=== PATIENT | male | born 1950 | race Caucasian/White ===

== ENCOUNTER → 2017-04-14 | Outpatient (CLI) | payer OTHER ==
[2014-05-25 08:32] VITALS: BP 123/80
[~2017-04-14] MED LIST: ASPI-482 PO; ATOR40TA PO; DUTA1CPM PO; HYDR-2758 PO; IBUP200T77 PO; ONDA4TAB12 PO; POTASSIUM CHLO10 MEQ PO
[2017-04-14 11:30] LABS: BASO % 1 % (0-3); EOS % 3 % (0-3); HEMATOCRIT 42.7 % (39.0-53.0); LYMPH # 1.4 x10^3/uL (1.0-4.8); LYMPH % 30 % (24-48); MEAN CORPUSCULAR HEMOGLOBIN 29 pg (25-35); MEAN CORPUSCULAR HGB CONC 33 g/dL (31-37); MEAN CORPUSCULAR VOLUME 88 fL (79-100); MONO % 14 % (0-9); NEUT % 53 % (31-73); PLATELET COUNT 156 x10^3/uL (140-400); RED BLOOD COUNT 4.88 x10^6/uL (4.30-5.70); RED CELL DISTRIBUTION WIDTH 13.4 % (11.5-14.5); WHITE BLOOD COUNT 4.8 x10^3/uL (4.0-11.0)
[2017-04-14 11:47] LABS: ALBUMIN 3.7 g/dL (3.4-5.0); ALBUMIN/GLOBULIN RATIO 1.1 (1.0-1.7); CALCIUM 8.5 mg/dL (8.5-10.1); CHOLESTEROL/HDL RATIO 3.4; GFR 74.5; POTASSIUM 3.6 mmol/L (3.5-5.1); TOTAL BILIRUBIN 1.3 mg/dL (0.2-1.0); TOTAL PROTEIN 7.1 g/dL (6.4-8.2)
[2017-04-14 12:16] LABS: FREE T4 0.91 ng/dL (0.76-1.46)
== END | disposition home or self-care (01) ==
LOC: LAB 11:07
PROVIDERS: ATTEND Family Medicine
DX: Z12.5 Encounter for screening for malignant neoplasm of prostate (principal); N40.0 Benign prostatic hyperplasia without lower urinary tract symptoms; R05 Cough; E78.5 Hyperlipidemia, unspecified; I10 Essential (primary) hypertension
CPT/HCPCS: 36415; 80053; 80061; 84439; 84443; 85025; G0103

== ENCOUNTER → 2017-05-29 | Outpatient (CLI) | payer OTHER ==
[2014-05-25 08:32] VITALS: BP 123/80
--- NOTE | 2017-05-29 09:12 | RAD ---
Indication: Right foot pain with weightbearing, symptoms are intermittent and occurred over the last couple of months. Technique: 3 views of the right foot are submitted for review. No comparison is available. Findings: There is mild degenerative change at the first metatarsal-phalangeal joint. There is a small plantar calcaneal spur. An acute fracture or dislocation is not identified. There is a slight increase in distance between the first and second metatarsal bases, although the metatarsals appear to maintain their relationships with the cuboid and cuneiforms. 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
== END | disposition home or self-care (01) ==
LOC: RAD 07:31
PROVIDERS: ATTEND Podiatrist
DX: M77.31 Calcaneal spur, right foot (principal)
CPT/HCPCS: 73630

== ENCOUNTER → 2017-08-17 | Outpatient (CLI) | payer OTHER ==
[~2017-08-17] MED LIST changes: -ASPI-482 PO; -ATOR40TA PO; -DUTA1CPM PO; -HYDR-2758 PO; -IBUP200T77 PO; -ONDA4TAB12 PO; -POTASSIUM CHLO10 MEQ PO; +REGADENOSON 0.4 MG/5 ML DISP.SYRIN. IV
== END | disposition home or self-care (01) ==
LOC: NM 09:24
DX: I10 Essential (primary) hypertension (principal); R22.9 Localized swelling, mass and lump, unspecified
CPT/HCPCS: 78452; 93017; 96374; 96375; 96376; A9500; J2785

== ENCOUNTER → 2018-07-09 | Outpatient (CLI) | payer OTHER, MEDICARE ==
[2014-05-25 08:32] VITALS: BP 123/80
[~2018-07-09] MED LIST changes: +ASPI-482 PO; +ATOR40TA PO; +DUTA1CPM PO; +HYDR-2758 PO; +IBUP200T77 PO; +ONDA4TAB12 PO; +POTA10TA12 PO; -REGADENOSON 0.4 MG/5 ML DISP.SYRIN. IV
[2018-07-09 12:41] LABS: ALBUMIN 3.8 g/dL (3.4-5.0); ALBUMIN/GLOBULIN RATIO 1.1 (1.0-1.7); CREATININE 1.1 mg/dL (0.7-1.3); GFR 66.6; POTASSIUM 3.7 mmol/L (3.5-5.1); TOTAL BILIRUBIN 1.2 mg/dL (0.2-1.0); TOTAL PROTEIN 7.2 g/dL (6.4-8.2)
[2018-07-09 12:44] LABS: CHOLESTEROL/HDL RATIO 2.9
[2018-07-10 14:22] LABS: THYROXINE 6.2 ug/dL (4.5-12.0)
== END | disposition home or self-care (01) ==
LOC: LAB 11:41
PROVIDERS: ATTEND Urology
DX: Z12.5 Encounter for screening for malignant neoplasm of prostate (principal); I10 Essential (primary) hypertension; E78.5 Hyperlipidemia, unspecified; R53.83 Other fatigue; R25.2 Cramp and spasm
CPT/HCPCS: 80053; 80061; 82607; 83735; 84443; G0103; 36415; 84436

== ENCOUNTER → 2019-02-01 | Outpatient (CLI) | payer OTHER ==
[2014-05-25 08:32] VITALS: BP 123/80
[~2019-02-01] MED LIST changes: -HYDR-2758 PO; +HYDR-2761 PO
== END | disposition home or self-care (01) ==
LOC: LAB 11:13
PROVIDERS: ATTEND Urology
DX: R97.20 Elevated prostate specific antigen [PSA] (principal)
CPT/HCPCS: 36415; 84153; G0103

== ENCOUNTER → 2020-01-30 | Outpatient (CLI) | payer OTHER ==
[2014-05-25 08:32] VITALS: BP 123/80
[2020-01-30 11:57] LABS: BASO % 1 % (0-3); EOS # 0.1 x10^3/uL (0.0-0.7); EOS % 1 % (0-3); HEMATOCRIT 42.9 % (39.0-53.0); HEMOGLOBIN 14.6 g/dL (13.0-17.5); LYMPH # 1.1 x10^3/uL (1.0-4.8); LYMPH % 24 % (24-48); MEAN CORPUSCULAR HEMOGLOBIN 30 pg (25-35); MEAN CORPUSCULAR HGB CONC 34 g/dL (31-37); MEAN CORPUSCULAR VOLUME 87 fL (79-100); MONO # 0.5 x10^3/uL (0.0-1.1); MONO % 11 % (0-9); NEUT % 63 % (31-73); PLATELET COUNT 156 x10^3/uL (140-400); RED BLOOD COUNT 4.93 x10^6/uL (4.30-5.70); RED CELL DISTRIBUTION WIDTH 13.7 % (11.5-14.5); WHITE BLOOD COUNT 4.7 x10^3/uL (4.0-11.0)
[2020-01-30 12:14] LABS: ALBUMIN 3.8 g/dL (3.4-5.0); CALCIUM 8.9 mg/dL (8.5-10.1); CREATININE 1.2 mg/dL (0.7-1.3); DIRECT BILIRUBIN 0.2 mg/dL (0.0-0.2); GFR 59.9; MAGNESIUM 1.9 mg/dL (1.8-2.4); POTASSIUM 4.3 mmol/L (3.5-5.1); TOTAL BILIRUBIN 0.7 mg/dL (0.2-1.0); TOTAL PROTEIN 7.2 g/dL (6.4-8.2)
[2020-01-30 12:15] LABS: CHOLESTEROL/HDL RATIO 3.4
== END | disposition home or self-care (01) ==
LOC: LAB 11:37
PROVIDERS: ATTEND Internal Medicine Cardiovascular Disease
DX: I10 Essential (primary) hypertension (principal); E78.5 Hyperlipidemia, unspecified
CPT/HCPCS: 36415; 80048; 80061; 80076; 83735; 85025

== ENCOUNTER → 2020-04-06 | Outpatient (CLI) | payer OTHER ==
[2014-05-25 08:32] VITALS: BP 123/80
--- NOTE | 2020-04-06 14:52 | RAD ---
MR#: [id number] Date of Study: 04/06/2020 Ordering Physician: CAMRON COTTON, Referring Physician: FARIDEH REED Tech: RT Wale (Joe) (N) APPROVED REPORT Test Type: Exercise Stress Nurse/Tech: Sandra Lorenzo RN Test Indications: JACOBO, Fatigue Cardiac History: Hypertension Medications: See Electronic Medical Record Medical History: See Electronic Medical Record Resting ECG: SB with 1st degree block Resting Heart Rate: 50 bpm Resting Blood Pressure: 96/60mmHg Pretest Chest Pain: No chest pain Nurse/Tech Notes S1S2, Lungs CTA Consent: The procedure was explained to the patient in lay terms. Informed consent was witnessed. Dada eout was entered into [employer]. History and Stress Test performed by ROSEMARIE Chong, ALEX (R) (N) Pharm. Details Pharmacologic stress testing was performed using 0.4mg per 5ml of regadenoson given intravenously ove r 7-10 seconds. Stress Symptoms Fatigue POST EXERCISE Reason for Termination: Reached target heart rate Target HR: 127 Max HR: 137 bpm 107% of Maximum Predicted HR: 137 bpm Exercise duration: 07:53 min:sec, 3 Stage Exercise capacity: 10.0METs Max Blood Pressure: 132/64mmHg Blood Pressure response to exercise: Normal blood pressure response during stress. Heart Rate response to exercise: WNL Chest Pain: No. Arrhythmia: No. 1st degree block before test and throughout test with no change. ST Change: No. INTERPRETATION Stress EKG Conclusion: Baseline EKG showed sinus rhythm with first degree AVB. No ischemic changes a t peak stress. No arrhythmias. Imaging Protocol IMAGE PROTOCOL: Rest Tc-99m/stress Tc-99m 1 day Rest: Stress: Viability: Radiopharm.Tc99m SxczsmpnlGd51a Sestamibi Dose10.7mCi 33mCi Duration 15min. 10min. Img Date 04/06/2020 04/06/2020 Inj-Img Kzxf32rpu. 60min. Post-Injection Exercise: 1 minute Rest Admin Site:IV - Right HandAdministrator:Carlyn Kidd, NMTCB, ARRT (R)(N) Stress Admin Site: IV - Right HandAdministrator: Carlyn Kidd, NMTCB, ARRT (R)(N) STRESS DATA End Diast. Vol.100.0mlAv. Heart Rate61.0bpm End Syst. Vol.20.0mlCO Index BSA0.0L/min Myocardial Ndtm325.0gEject. Hjltqgfp78.0% Stress Rates Pk. Fill Rate2.75EDV/secLVtime Pk. Fill 235.61msec Pk. Empty Rate3.53ESV/secLVtime Pk. Gsuqv822.75msec 08/16 Pk. Fill1.24EDV/sec Stress Scores Regional WT0.00Summed WT2.00 Regional WM0.00Summed WM0.00 Study quality was good. Left Ventricular size was Normal at Rest and Stress. Lung uptake was . Left Ventricular ejection fraction is 80%. The rest and stress images show normal perfusion, normal contraction and thickening. LV Perf. Quant 17 Seg. SSS0.00 17 Seg. SRS1.00 17 Seg. SDS0.00 Stress Defect Extent (% LAD)0.00Rest Defect Extent (% LAD)0.00Rev. Defect Extent (% LAD)0.00 Stress Defect Extent (% LCX) 0.00Rest Defect Extent (% LCX)0.00Rev. Defect Extent (% LCX)0.00 Stress Defect Extent (% RCA)0.00Rest Defect Extent (% RCA)0.00Rev. Defect Extent (% RCA)0.00 Stress Defect Extent (% HOME)0.00Rest Defect Extent (% HOME)0.00Rev. Defect Extent (% HOME)0.00 Conclusion 1. Treadmill exercise cardioisotope stress test did not show any evidence of ischemia or infarct. 2. Normal left ventricular systolic function with ejection fraction calculated at 80%. 3. Low risk for cardiac events. Signed by : Darius Minaya, Electronically Approved : 04/06/2020 14:51:42
== END | disposition home or self-care (01) ==
LOC: NM 07:54
PROVIDERS: ATTEND Internal Medicine Cardiovascular Disease
DX: I10 Essential (primary) hypertension (principal); R06.00 Dyspnea, unspecified
CPT/HCPCS: 78452; 93017; A9500

== ENCOUNTER → 2020-04-06 | Outpatient (CLI) | payer OTHER ==
[2014-05-25 08:32] VITALS: BP 123/80
--- NOTE | 2020-04-06 09:46 | CARD ---
MR#: [id number] Date of Study: 04/06/2020 Ordering Physician: CAMRON COTTON, Referring Physician: CAMRON COTTON, Tech: Ruth Keith APPROVED REPORT EXAM: Two-dimensional and M-mode echocardiogram with Doppler and color Doppler. Other Information Quality : AverageHR: 49bpm INDICATION Dyspnea RISK FACTORS Hypertension Hyperlipidemia 2D DIMENSIONS RVDd4.4 (2.9-3.5cm)Left Atrium(2D)3.5 (1.6-4.0cm) IVSd1.0 (0.7-1.1cm)Aortic Root(2D)3.8 (2.0-3.7cm) LVDd4.5 (3.9-5.9cm)LVOT Diameter2.1 (1.8-2.4cm) PWd1.0 (0.7-1.1cm)LVDs2.9 (2.5-4.0cm) FS (%) 36.0 %SV59.6 ml LVEF(%)65.8 (>50%) Aortic Valve AoV Peak Arturo.125.4cm/sAoV VTI26.1cm AO Peak GR.6.3mmHgLVOT Peak Arturo.100.2cm/s LVOT VTI 24.29cmAO Mean GR.3mmHg SAE (VMAX)1.86rv7WGR (VTI)3.10cm2 Mitral Valve MV E Edtsljaw17.3cm/sMV DECEL [id number] MV A Lmiubkpo35.3cm/sMV E Mean Gr.1mmHg MV NBW30jqO/A Ratio1.2 MVA (PHT)3.27cm2 TDI E/Lateral E'7.4E/Medial E'11.1 Pulmonary Valve PV Peak Xrgadjvm07.8cm/sPV Peak Grad.4mmHg Tricuspid Valve TR P. Dfrtbuoe726ew/sRAP CVYDOZTB5zjMl TR Peak Gr.09xyXgJAPT49cxEn Pulmonary Vein S1 Uphtgznd24.8cm/sD2 Qzeqnwfh51.1cm/s LEFT VENTRICLE The left ventricle is normal size. There is normal left ventricular wall thickness. The left ventricu lar systolic function is normal. The Ejection Fraction is 55-60%. There is normal LV segmental wall m otion. Transmitral Doppler flow pattern is Grade II-pseudonormal filling dynamics. RIGHT VENTRICLE The right ventricle is normal size. There is normal right ventricular wall thickness. The right ventr icular systolic function is normal. ATRIA The left atrium size is normal. The right atrium size is normal. The interatrial septum is intact wit h no evidence for an atrial septal defect or patent foramen ovale as noted on 2-D or Doppler imaging. AORTIC VALVE The aortic valve is thickened but opens well. Doppler and Color Flow revealed no significant aortic r egurgitation. There is no significant aortic valvular stenosis. Calculated aortic valve area is 2.99 cm2 with maximum pressure gradient of 8 mmHg and mean pressure gradient of 4 mmHg. MITRAL VALVE The mitral valve is normal in structure and function. There is no evidence of mitral valve prolapse. There is no mitral valve stenosis. Doppler and Color Flow revealed no mitral valve regurgitation note d. TRICUSPID VALVE The tricuspid valve is normal in structure and function. Doppler and Color Flow revealed trace tricus pid regurgitation with an estimated PAP of 24 mmHg. There is no tricuspid valve stenosis. PULMONIC VALVE The pulmonic valve is not well visualized. Doppler and Color Flow revealed no pulmonic valvular regur gitation. GREAT VESSELS The aortic root is normal in size. The ascending aorta is normal in size. The IVC is normal in size a nd collapses >50% with inspiration. PERICARDIAL EFFUSION There is no evidence of significant pericardial effusion. Critical Notification Critical Value: No <Conclusion> The left ventricular systolic function is normal. The Ejection Fraction is 55-60%. There is normal LV segmental wall motion. Trace tricuspid regurgitation with an estimated PAP of 24 mmHg. There is no evidence of significant pericardial effusion. Signed by : Darius Minaya, Electronically Approved : 04/06/2020 09:45:54
== END | disposition home or self-care (01) ==
LOC: NM 09:00
PROVIDERS: ATTEND Internal Medicine Cardiovascular Disease
DX: I10 Essential (primary) hypertension (principal)
CPT/HCPCS: 93306

== ENCOUNTER → 2020-05-04 | Outpatient (CLI) | payer OTHER ==
[2014-05-25 08:32] VITALS: BP 123/80
== END | disposition home or self-care (01) ==
LOC: LAB 11:40
PROVIDERS: ATTEND Internal Medicine Pulmonary Disease
DX: Z20.828 Contact with and (suspected) exposure to other viral communicable diseases (principal)
CPT/HCPCS: U0003-CS

== ENCOUNTER → 2020-06-29 | Outpatient (CLI) | payer OTHER ==
[2014-05-25 08:32] VITALS: BP 123/80
== END ==
LOC: LAB 10:26
PROVIDERS: ATTEND Internal Medicine Pulmonary Disease
DX: Z01.812 Encounter for preprocedural laboratory examination (principal); Z20.828 Contact with and (suspected) exposure to other viral communicable diseases; Z98.61 Coronary angioplasty status
CPT/HCPCS: U0003

== ENCOUNTER → 2020-09-08 | Outpatient (CLI) | payer OTHER ==
[2014-05-25 08:32] VITALS: BP 123/80
== END ==
LOC: LAB 12:54
PROVIDERS: ATTEND Internal Medicine Pulmonary Disease
DX: R05 Cough (principal); Z20.828 Contact with and (suspected) exposure to other viral communicable diseases
CPT/HCPCS: U0003

== ENCOUNTER → 2020-09-25 | Outpatient (CLI) | payer OTHER ==
[2014-05-25 08:32] VITALS: BP 123/80
[2020-09-25 11:08] LABS: BASO % 1 % (0-3); EOS # 0.1 x10^3/uL (0.0-0.7); EOS % 2 % (0-3); HEMATOCRIT 41.7 % (39.0-53.0); LYMPH # 1.1 x10^3/uL (1.0-4.8); LYMPH % 25 % (24-48); MEAN CORPUSCULAR HEMOGLOBIN 29 pg (25-35); MEAN CORPUSCULAR HGB CONC 34 g/dL (31-37); MEAN CORPUSCULAR VOLUME 87 fL (79-100); MONO # 0.5 x10^3/uL (0.0-1.1); MONO % 12 % (0-9); NEUT # 2.7 x10^3/uL (1.8-7.7); NEUT % 61 % (31-73); PLATELET COUNT 151 x10^3/uL (140-400); RED CELL DISTRIBUTION WIDTH 13.8 % (11.5-14.5); WHITE BLOOD COUNT 4.5 x10^3/uL (4.0-11.0)
[2020-09-25 11:31] LABS: ALBUMIN 3.5 g/dL (3.4-5.0); CALCIUM 9.1 mg/dL (8.5-10.1); CREATININE 1.1 mg/dL (0.7-1.3); POTASSIUM 4.1 mmol/L (3.5-5.1); TOTAL BILIRUBIN 0.6 mg/dL (0.2-1.0)
[2020-09-25 11:32] LABS: CHOLESTEROL/HDL RATIO 3.5
== END ==
LOC: LAB 10:22
PROVIDERS: ATTEND Internal Medicine Pulmonary Disease
DX: R06.00 Dyspnea, unspecified (principal); N40.1 Benign prostatic hyperplasia with lower urinary tract symptoms; E78.5 Hyperlipidemia, unspecified; E03.8 Other specified hypothyroidism
CPT/HCPCS: 36415; 80053; 80061; 82306; 84153; 84443; 85025; G0103

== ENCOUNTER → 2021-04-05 | Outpatient (CLI) | payer OTHER ==
[2014-05-25 08:32] VITALS: BP 123/80
== END ==
LOC: LAB 10:11
PROVIDERS: ATTEND Internal Medicine Pulmonary Disease
DX: Z20.822 Contact with and (suspected) exposure to COVID-19 (principal)
CPT/HCPCS: U0003